=== PATIENT | male | born 1990 | race Caucasian/White ===

== ENCOUNTER 2017-04-03 20:30 | Emergency (ER) | payer MEDICAID ==
[~2017-04-03] VITALS: Ht 172.7 cm; Wt 114.0 kg
[~2017-04-03 20:30] MED LIST: BENADRYL
[2017-04-03 22:52] LABS: BASOPHILS % 0.2 % (0.0-2.0); EOSINOPHILS % 0.2 % (0.0-5.0); HEMATOCRIT. 42.6 % (42.0-52.0); HEMOGLOBIN. 14.2 g/dL (14.0-18.0); LYMPHOCYTES % 18.2 % (20.0-50.0); MEAN CORPUSCULAR HEMOGLOBIN 28.6 pg (28.0-32.0); MEAN CORPUSCULAR VOLUME 86.1 fL (80.0-94.0); MEAN PLATELET VOLUME 7.4 fl (7.4-10.4); MONOCYTES % 6.9 % (2.0-8.0); NEUTROPHILS % 74.5 % (40.0-76.0); PLATELET 325 x1000/uL (130-400); RED BLOOD CELL COUNT 4.95 mill/uL (4.7-6.1); RED CELL DISTRIBUTION WIDTH 14.3 % (11.6-14.6)
[2017-04-03 23:05] LABS: CHLORIDE 105 mEq/L (98-107); ETHANOL BLOOD < 10 mg/dL
[2017-04-03] MEDS ORDERED: SODIUM CHLORIDE 0.9% 1,000 ML IV ONE (23:30)
[2017-04-04 02:31] LABS: CLARITY URINE CLEAR (CLEAR); COLOR URINE DARK YELLOW (YELLOW); KETONES URINE 1+ (NEGATIVE); LEUKOCYTE ESTERASE URINE TRACE (NEGATIVE); NITRITE URINE NEGATIVE (NEGATIVE); OCCULT BLOOD URINE 2+ (NEGATIVE); PROTEIN URINE 3+ (NEGATIVE)
[2017-04-04 02:53] LABS: *AMPHETAMINES SCREEN URINE PRESUMTIVE POSITIVE (NEGATIVE); *BARBITURATES SCREEN URINE NEGATIVE (NEGATIVE); *BENZODIAZEPINES SCREEN URINE NEGATIVE (NEGATIVE); *COCAINE SCREEN URINE NEGATIVE (NEGATIVE); CANNABINOID URINE SCREEN PRESUMTIVE POSITIVE (NEGATIVE); METHADONE URINE SCREEN NEGATIVE (NEGATIVE); OPIATES URINE SCREEN NEGATIVE (NEGATIVE); PHENCYCLIDINE URINE SCREEN NEGATIVE (NEGATIVE)
[2017-04-04] MEDS ORDERED: LIDOCAINE HCL 1% 20ML VIAL (Pyxis) INJ INFIL ONE (07:30)
[2017-04-04] MEDS ORDERED: CEFTRIAXONE SODIUM 250 MG/VIAL IM ONE ×2 (07:30→09:45)
[2017-04-04] MEDS ORDERED: PIPERACILLIN/TAZ 3.375G PREMIX 50 ML IV ONE (08:00)
[2017-04-04] MEDS ORDERED: AZITHROMYCIN 500 MG TABLET PO ONE (09:45)
[2017-04-04] MEDS ORDERED: IOHEXOL-300 100 ML BOTTLE ONE (09:51)
[2017-04-05] MEDS ORDERED: ACETAMINOPHEN 325MG TABLET PO ONE (13:15)
[2017-04-05 20:30] VITALS: BP 127/69
== END 2017-04-05 21:31 ==
LOC: ER 20:31 → EDUNIT# 20:31 → ER 04-05 21:31
DX: T40.5X2A Poisoning by cocaine, intentional self-harm, initial encounter (principal); F14.129 Cocaine abuse with intoxication, unspecified; T43.622A Poisoning by amphetamines, intentional self-harm, initial encounter; F15.129 Other stimulant abuse with intoxication, unspecified; T40.7X2A Poisoning by cannabis (derivatives), intentional self-harm, initial encounter; F12.129 Cannabis abuse with intoxication, unspecified; S31.614A Laceration without foreign body of abdominal wall, left lower quadrant with penetration into peritoneal cavity, initial encounter; N34.2 Other urethritis; K76.0 Fatty (change of) liver, not elsewhere classified; Z59.0 Homelessness; X78.1XXA Intentional self-harm by knife, initial encounter; W26.0XXA Contact with knife, initial encounter; R45.850 Homicidal ideations; Y93.89 Activity, other specified; Y92.89 Other specified places as the place of occurrence of the external cause
CPT/HCPCS: 36415; 74177; 80053; 80305; 80307; 80329; 81001; 85025; 87086; 96361; 96365; 96366; 96372; 99285; G0482; J0696; J2543; J7030; Q9967; Z7610

== ENCOUNTER 2021-12-11 07:13 | Inpatient (IN) | payer MEDICAID ==
[~2021-12-11] VITALS: Ht 177.8 cm; Wt 173.3 kg
[2021-12-11] MEDS ORDERED: ALBUTEROL (0.083%) 2.5MG/3ML NEB HHN STA (08:14)
[2021-12-11 08:30] LABS: BASOPHILS % 0.2 % (0.0-2.0); EOSINOPHILS % 1.7 % (0.0-5.0); HEMATOCRIT. 36.3 % (42.0-52.0); HEMOGLOBIN. 12.3 g/dL (14.0-18.0); LYMPHOCYTES % 8.4 % (20.0-50.0); MEAN CORPUSCULAR HEMOGLOBIN 28.5 pg (28.0-32.0); MEAN CORPUSCULAR VOLUME 83.9 fL (80.0-94.0); MEAN PLATELET VOLUME 7.7 fl (7.4-10.4); MONOCYTES % 6.2 % (2.0-8.0); NEUTROPHILS % 83.5 % (40.0-76.0); PLATELET 202 x1000/uL (130-400); RED BLOOD CELL COUNT 4.33 mill/uL (4.7-6.1)
[2021-12-11 08:41] LABS: CHLORIDE 102 mEq/L (98-107)
[2021-12-11] MEDS ORDERED: ACETAMINOPHEN 325MG TABLET PO ONE (09:00)
[2021-12-11] MEDS ORDERED: FUROSEMIDE 40MG/4ML VIAL IV ONE (12:45)
[2021-12-11] MEDS ORDERED: ASPIRIN 81MG TABLET PO ONE (12:45)
[2021-12-11] MEDS ORDERED: FUROSEMIDE 40MG/4ML VIAL IVP ONE (14:30)
[2021-12-11] MEDS ORDERED: DIPHENHYDRAMINE 50MG/ML VIAL IV PRN (15:00)
[2021-12-11] MEDS ORDERED: ONDANSETRON HCL 4MG/2ML INJ IV PRN (15:00)
[2021-12-11] MEDS: HYDRALAZINE 20MG/ML VIAL IV PRN ×2 (15:19→22:07)
[2021-12-11] MEDS: CLONIDINE 0.1MG TABLET PO PRN (15:19)
[2021-12-11] MEDS ORDERED: DEXTROSE 50% WATER 50ML SYRINGE IV PRN (15:45)
[2021-12-11] MEDS: IPRATROPIUM/ALBUTEROL 0.5-3(2.5)MG/3ML NEB HHN PRN (15:46)
[2021-12-11 15:56] LABS: BG BASE EXCESS 5.9 mmol/L (-2.0-2.0); BG CARBOXYHEMOGLOBIN 0.8 % (0.5-1.5); BG DEOXYHEMOGLOBIN 3.4 % (0.0-5.0); BG FRACTION INSPIRED OXYGEN 28; BG HCO3 ACT 28.4 mmol/L (22.0-26.0); BG METHEMOGLOBIN 0.2 % (0.0-1.5); BG OXYGEN SATURATION 96.6 % (92.0-98.5); BG OXYHEMOGLOBIN 95.6 % (94.0-97.0); BG PCO2 34.5 mmHg (35.0-45.0); BG PH 7.534 (7.350-7.450); BG PO2 80.5 mmHg (75.0-100.0); BG SAMPLE SITE RIGHT RADIAL; BG TOTAL HEMOGLOBIN 13.5 g/dL (12.0-18.0); BG VENT MODE NASAL CANNULA
[2021-12-11] MEDS ORDERED: POTASSIUM CHLORIDE 20MEQ/PACKET PO NR (16:00)
[2021-12-11] MEDS: ENOXAPARIN 30MG/0.3ML SYR SUBCUT SCH (16:11)
[2021-12-11] MEDS ORDERED: FUROSEMIDE 40MG/4ML VIAL IV SCH (17:00)
[2021-12-11] MEDS: BLOOD SUGAR DIAGNOSTIC STRIP TEST SCH ×2 (17:32→21:37)
[2021-12-11] MEDS: INSULIN LISPRO 100 UNITS/ML SUBCUT SCH ×2 (18:20→21:00)
[2021-12-11 20:00] VITALS: BP 181/111
[2021-12-11] MEDS ORDERED: HYDROCODONE/ACETAMINOPHEN 5/325MG TABLET PO PRN (21:45)
[2021-12-11] MEDS ORDERED: NALOXONE HCL 0.4MG/ML VIAL IV PRN (22:00)
[2021-12-11] MEDS: ZOLPIDEM TARTRATE 5MG TABLET PO PRN (22:11)
[2021-12-11 22:26] VITALS: BP 181/111
[2021-12-12] VITALS (7 sets, daily range): BP systolic 118–158; BP diastolic 60–101
[2021-12-12] MEDS ORDERED: INFLUENZA VACCINE 05/PF 0.5 ML SYRINGE IM ONE (00:45)
[2021-12-12] MEDS: IPRATROPIUM/ALBUTEROL 0.5-3(2.5)MG/3ML NEB HHN PRN (04:37)
[2021-12-12] MEDS: CLONIDINE 0.1MG TABLET PO PRN (04:50)
[2021-12-12] MEDS: ENOXAPARIN 30MG/0.3ML SYR SUBCUT SCH (06:11)
[2021-12-12] MEDS: BLOOD SUGAR DIAGNOSTIC STRIP TEST SCH ×4 (06:16→21:00)
[2021-12-12] MEDS: INSULIN LISPRO 100 UNITS/ML SUBCUT SCH ×4 (06:16→21:00)
[2021-12-12 07:35] LABS: BASOPHILS % 0.3 % (0.0-2.0); EOSINOPHILS % 1.7 % (0.0-5.0); HEMATOCRIT. 37.4 % (42.0-52.0); HEMOGLOBIN. 12.7 g/dL (14.0-18.0); LYMPHOCYTES % 14.6 % (20.0-50.0); MEAN CORPUSCULAR HEMOGLOBIN 28.3 pg (28.0-32.0); MEAN CORPUSCULAR VOLUME 83.6 fL (80.0-94.0); MEAN PLATELET VOLUME 7.8 fl (7.4-10.4); MONOCYTES % 11.2 % (2.0-8.0); NEUTROPHILS % 72.2 % (40.0-76.0); PLATELET 223 x1000/uL (130-400); RED BLOOD CELL COUNT 4.47 mill/uL (4.7-6.1); RED CELL DISTRIBUTION WIDTH 15.3 % (11.6-14.6)
[2021-12-12 07:46] LABS: CHLORIDE 98 mEq/L (98-107)
[2021-12-12 08:09] LABS: HDL CHOLESTEROL 50 mg/dL (40-59); LDL CHOLESTEROL 86 mg/dL (5-100)
[2021-12-12] MEDS: POTASSIUM CHLORIDE 20MEQ TABLET SR PO SCH ×2 (08:30→16:30)
[2021-12-12] MEDS: ASPIRIN 81MG EC TABLET PO SCH (08:30)
[2021-12-12] MEDS: AMLODIPINE 5MG TABLET PO SCH ×2 (08:31→21:07)
[2021-12-12] MEDS: FUROSEMIDE 40MG/4ML VIAL IV SCH ×2 (08:31→16:31)
[2021-12-12] MEDS: ACETAMINOPHEN 325MG TABLET PO PRN (11:53)
[2021-12-12 14:51] LABS: *AMPHETAMINES SCREEN URINE NEGATIVE (NEGATIVE); *BARBITURATES SCREEN URINE NEGATIVE (NEGATIVE); *BENZODIAZEPINES SCREEN URINE NEGATIVE (NEGATIVE); *COCAINE SCREEN URINE NEGATIVE (NEGATIVE); CANNABINOID URINE SCREEN NEGATIVE (NEGATIVE); METHADONE URINE SCREEN NEGATIVE (NEGATIVE); OPIATES URINE SCREEN NEGATIVE (NEGATIVE); PHENCYCLIDINE URINE SCREEN NEGATIVE (NEGATIVE)
[2021-12-12] MEDS: ENOXAPARIN 40MG/0.4ML SYR SUBCUT SCH (17:21)
[2021-12-12] MEDS: ZOLPIDEM TARTRATE 5MG TABLET PO PRN (21:07)
[2021-12-13 00:11] VITALS: BP 132/76
[2021-12-13] MEDS: FUROSEMIDE 40MG/4ML VIAL IV SCH ×3 (00:46→17:11)
[2021-12-13 04:15] VITALS: BP 128/86
[2021-12-13] MEDS: ENOXAPARIN 40MG/0.4ML SYR SUBCUT SCH ×2 (05:36→17:12)
[2021-12-13] MEDS: BLOOD SUGAR DIAGNOSTIC STRIP TEST SCH ×4 (05:36→21:00)
[2021-12-13] MEDS: INSULIN LISPRO 100 UNITS/ML SUBCUT SCH ×4 (05:37→21:00)
[2021-12-13 06:09] LABS: BASOPHILS % 0.2 % (0.0-2.0); EOSINOPHILS % 2.7 % (0.0-5.0); HEMATOCRIT. 39.4 % (42.0-52.0); HEMOGLOBIN. 13.5 g/dL (14.0-18.0); LYMPHOCYTES % 19.4 % (20.0-50.0); MEAN CORPUSCULAR HEMOGLOBIN 28.8 pg (28.0-32.0); MEAN CORPUSCULAR VOLUME 84.1 fL (80.0-94.0); MEAN PLATELET VOLUME 7.7 fl (7.4-10.4); MONOCYTES % 10.3 % (2.0-8.0); NEUTROPHILS % 67.4 % (40.0-76.0); PLATELET 273 x1000/uL (130-400); RED BLOOD CELL COUNT 4.69 mill/uL (4.7-6.1); RED CELL DISTRIBUTION WIDTH 15.1 % (11.6-14.6)
[2021-12-13 06:18] LABS: CHLORIDE 97 mEq/L (98-107)
[2021-12-13] MEDS: ACETAMINOPHEN 325MG TABLET PO PRN (06:58)
[2021-12-13 08:00] VITALS: BP 140/86
[2021-12-13] MEDS: AMLODIPINE 5MG TABLET PO SCH ×2 (09:37→20:59)
[2021-12-13] MEDS: POTASSIUM CHLORIDE 20MEQ TABLET SR PO SCH ×2 (09:37→17:12)
[2021-12-13 09:39] LABS: BG BASE EXCESS 6.7 mmol/L (-2.0-2.0); BG CARBOXYHEMOGLOBIN 1.1 % (0.5-1.5); BG DEOXYHEMOGLOBIN 7.3 % (0.0-5.0); BG FRACTION INSPIRED OXYGEN 21; BG HCO3 ACT 31.2 mmol/L (22.0-26.0); BG METHEMOGLOBIN 0.1 % (0.0-1.5); BG OXYGEN SATURATION 92.6 % (92.0-98.5); BG OXYHEMOGLOBIN 91.5 % (94.0-97.0); BG PCO2 43.9 mmHg (35.0-45.0); BG PO2 61.9 mmHg (75.0-100.0); BG SAMPLE SITE LEFT RADIAL; BG TOTAL HEMOGLOBIN 14.9 g/dL (12.0-18.0); BG VENT MODE ROOM AIR
[2021-12-13] MEDS: ASPIRIN 81MG EC TABLET PO SCH (09:39)
[2021-12-13 12:00] VITALS: BP 123/61
[2021-12-13] MEDS ORDERED: POTASSIUM CHLORIDE 20MEQ/PACKET PO NR (12:30)
[2021-12-13 16:00] VITALS: BP 134/53
[2021-12-13 20:00] VITALS: BP 130/50
[2021-12-13] MEDS: ZOLPIDEM TARTRATE 5MG TABLET PO PRN (20:59)
[2021-12-14] VITALS: BP 120/50
[2021-12-14] MEDS: FUROSEMIDE 40MG/4ML VIAL IV SCH (02:48)
[2021-12-14 04:00] VITALS: BP 140/55
[2021-12-14] MEDS: INSULIN LISPRO 100 UNITS/ML SUBCUT SCH (05:42)
[2021-12-14] MEDS: BLOOD SUGAR DIAGNOSTIC STRIP TEST SCH ×2 (05:42→11:35)
[2021-12-14] MEDS: ENOXAPARIN 40MG/0.4ML SYR SUBCUT SCH ×2 (05:52→17:32)
[2021-12-14] MEDS ORDERED: METOLAZONE 2.5MG TABLET PO NR (06:30)
[2021-12-14 07:11] LABS: BASOPHILS % 0.2 % (0.0-2.0); EOSINOPHILS % 3.6 % (0.0-5.0); HEMATOCRIT. 40.2 % (42.0-52.0); HEMOGLOBIN. 13.7 g/dL (14.0-18.0); LYMPHOCYTES % 29.1 % (20.0-50.0); MEAN CORPUSCULAR HEMOGLOBIN 28.6 pg (28.0-32.0); MEAN CORPUSCULAR VOLUME 83.7 fL (80.0-94.0); MEAN PLATELET VOLUME 7.7 fl (7.4-10.4); MONOCYTES % 8.8 % (2.0-8.0); NEUTROPHILS % 58.3 % (40.0-76.0); PLATELET 300 x1000/uL (130-400); RED BLOOD CELL COUNT 4.81 mill/uL (4.7-6.1); RED CELL DISTRIBUTION WIDTH 15.3 % (11.6-14.6)
[2021-12-14 08:00] VITALS: BP 136/93
[2021-12-14] MEDS: FUROSEMIDE 100MG/10ML VIAL IV SCH ×2 (08:59→17:25)
[2021-12-14] MEDS: POTASSIUM CHLORIDE 20MEQ TABLET SR PO SCH ×2 (08:59→17:26)
[2021-12-14] MEDS: ASPIRIN 81MG EC TABLET PO SCH (08:59)
[2021-12-14] MEDS: AMLODIPINE 5MG TABLET PO SCH ×2 (09:00→21:41)
[2021-12-14] MEDS: GUAIFENESIN 600MG ER TABLET PO SCH ×2 (11:35→21:41)
[2021-12-14 12:00] VITALS: BP 126/84
[2021-12-14 16:00] VITALS: BP 123/81
[2021-12-14 20:00] VITALS: BP 155/107
[2021-12-14] MEDS: ZOLPIDEM TARTRATE 5MG TABLET PO PRN (21:41)
[2021-12-15] VITALS: BP 115/74
[2021-12-15] MEDS: FUROSEMIDE 100MG/10ML VIAL IV SCH ×2 (00:59→08:49)
[2021-12-15 04:00] VITALS: BP 127/70
[2021-12-15] MEDS: ENOXAPARIN 40MG/0.4ML SYR SUBCUT SCH (05:56)
[2021-12-15] MEDS: ACETAMINOPHEN 325MG TABLET PO PRN (05:57)
[2021-12-15 08:00] VITALS: BP 163/88
[2021-12-15] MEDS ORDERED: METOLAZONE 2.5MG TABLET PO NR (08:00)
[2021-12-15] MEDS: POLYETHYLENE GLYCOL 3350 (17GM) 1 DOSE PACK PO SCH ×2 (08:45→09:00)
[2021-12-15] MEDS: AMLODIPINE 5MG TABLET PO SCH (08:50)
[2021-12-15] MEDS: POTASSIUM CHLORIDE 20MEQ TABLET SR PO SCH (08:50)
[2021-12-15] MEDS: ASPIRIN 81MG EC TABLET PO SCH (08:50)
[2021-12-15] MEDS: GUAIFENESIN 600MG ER TABLET PO SCH (08:50)
[2021-12-15] MEDS ORDERED: GUAI600T44 MT (11:09)
[2021-12-15] MEDS ORDERED: MELA3TAB71 MT (11:09)
[2021-12-15] MEDS ORDERED: POLY17PO3 MT (11:09)
[2021-12-15] MEDS ORDERED: FURO80TA3 MT (11:09)
[2021-12-15] MEDS ORDERED: POTA-205 MT (11:09)
[2021-12-15] MEDS ORDERED: LORA-249 MT (11:11)
[2021-12-15 12:12] VITALS: BP 132/87
[2021-12-15 12:17] VITALS: BP 132/87
== END 2021-12-15 14:45 | disposition home or self-care (01) | DRG 194 ==
LOC: ER 07:13 → 8WST 13:33 → EDBEDREQTM 13:38 → EDBEDREQ 13:38 → ENRESERV 18:06 → 8WST 20:24
PROVIDERS: ADMIT Internal Medicine; ATTEND Internal Medicine
PROC: 5A09357 Assistance with Respiratory Ventilation, Less than 24 Consecutive Hours, Continuous Positive Airway Pressure (ICD-10-PCS; principal; 2021-12-12)
DX: I11.0 Hypertensive heart disease with heart failure (principal); J96.01 Acute respiratory failure with hypoxia; E44.1 Mild protein-calorie malnutrition; F41.9 Anxiety disorder, unspecified; J44.9 Chronic obstructive pulmonary disease, unspecified; E87.3 Alkalosis; I50.23 Acute on chronic systolic (congestive) heart failure; E87.6 Hypokalemia; E66.01 Morbid (severe) obesity due to excess calories; I34.0 Nonrheumatic mitral (valve) insufficiency; R73.9 Hyperglycemia, unspecified; Z20.822 Contact with and (suspected) exposure to COVID-19; E66.09 Other obesity due to excess calories; I16.0 Hypertensive urgency; F17.210 Nicotine dependence, cigarettes, uncomplicated; G47.33 Obstructive sleep apnea (adult) (pediatric); Z79.82 Long term (current) use of aspirin; Z68.43 Body mass index [BMI] 50.0-59.9, adult; Z71.6 Tobacco abuse counseling
CPT/HCPCS: 36415; 36600; 71045; 80048; 80053; 80061; 80305; 80307; 80329; 82375; 82805; 82962; 83036; 83735; 83880; 84443; 84484; 85025; 87426; 87804; 90686; 93005; 93306; 93970; 94640; 94660; 99291; C9803; J0360; J1650; J1815; J1940

== ENCOUNTER 2022-04-13 12:49 | Inpatient (IN) | payer MEDICAID ==
[~2022-04-13] VITALS: Ht 167.6 cm; Wt 207.7 kg
[~2022-04-13 12:49] MED LIST changes: -BENADRYL; +FURO80TA3 MT; +GUAI600T44 MT; +LORA-249 MT; +MELA3TAB71 MT; +POLY17PO3 MT; +POTA-205 MT
[2022-04-13 13:41] LABS: BG BASE EXCESS -5.4 mmol/L (-2.0-2.0); BG CARBOXYHEMOGLOBIN 1.1 % (0.5-1.5); BG DEOXYHEMOGLOBIN 0.3 % (0.0-5.0); BG FRACTION INSPIRED OXYGEN 100; BG HCO3 ACT 20.4 mmol/L (22.0-26.0); BG METHEMOGLOBIN 0.5 % (0.0-1.5); BG OXYGEN SATURATION 99.7 % (92.0-98.5); BG OXYHEMOGLOBIN 98.1 % (94.0-97.0); BG PCO2 40.8 mmHg (35.0-45.0); BG PH 7.316 (7.350-7.450); BG SAMPLE SITE RIGHT RADIAL; BG TOTAL HEMOGLOBIN 13.7 g/dL (12.0-18.0); BG TOTAL RESPIRATORY RATE 30 b/min; BG VENT MODE MASK - BIPAP
[2022-04-13 14:13] LABS: CHLORIDE 106 mEq/L (98-107)
[2022-04-13 14:21] LABS: BASOPHILS % 0.4 % (0.0-2.0); EOSINOPHILS % 0.6 % (0.0-5.0); HEMATOCRIT. 42.5 % (42.0-52.0); HEMOGLOBIN. 13.5 g/dL (14.0-18.0); LYMPHOCYTES % 13.6 % (20.0-50.0); MEAN CORPUSCULAR HEMOGLOBIN 26.9 pg (28.0-32.0); MEAN CORPUSCULAR VOLUME 84.7 fL (80.0-94.0); MEAN PLATELET VOLUME 7.1 fl (7.4-10.4); MONOCYTES % 8.6 % (2.0-8.0); NEUTROPHILS % 76.8 % (40.0-76.0); PLATELET 419 x1000/uL (130-400); RED BLOOD CELL COUNT 5.02 mill/uL (4.7-6.1); RED CELL DISTRIBUTION WIDTH 15.4 % (11.6-14.6)
[2022-04-13 14:24] LABS: ETHANOL BLOOD < 10 mg/dL
[2022-04-13] MEDS ORDERED: ASPIRIN 325MG EC TABLET PO SCH (15:00)
[2022-04-13] MEDS ORDERED: FUROSEMIDE 40MG/4ML VIAL IVP SCH (15:00)
[2022-04-13] MEDS ORDERED: ENOXAPARIN 100MG/ML SYR SUBCUT SCH (15:00)
[2022-04-13] MEDS ORDERED: NITROGLYCERIN OINT 1GM/INCH UDPKT TD SCH (15:00)
[2022-04-13] MEDS ORDERED: HYDRALAZINE 20MG/ML VIAL IV PRN (20:15)
[2022-04-13] MEDS ORDERED: HYDROCODONE/ACETAMINOPHEN 10/325MG TABLET PO PRN (20:45)
[2022-04-14] VITALS (12 sets, daily range): BP systolic 125–168; BP diastolic 50–123
[2022-04-14] MEDS ORDERED: IPRATROPIUM/ALBUTEROL 0.5-3(2.5)MG/3ML NEB HHN PRN (01:00)
[2022-04-14] MEDS ORDERED: NALOXONE HCL 0.4MG/ML VIAL IV PRN (01:30)
[2022-04-14] MEDS ORDERED: ALBUTEROL (0.083%) 2.5MG/3ML NEB HHN PRN (01:30)
[2022-04-14] MEDS ORDERED: IPRATROPIUM BROMIDE (0.02%) 0.5MG/2.5ML NEB HHN PRN (01:30)
[2022-04-14] MEDS ORDERED: IPRATROPIUM/ALBUTEROL 0.5-3(2.5)MG/3ML NEB HHN SCH (04:00)
[2022-04-14] MEDS: HYDROCODONE/ACETAMINOPHEN 10/325MG TABLET PO PRN ×4 (04:28→21:43)
[2022-04-14] MEDS: IPRATROPIUM BROMIDE (0.02%) 0.5MG/2.5ML NEB HHN SCH ×4 (04:32→21:19)
[2022-04-14] MEDS: ALBUTEROL (0.083%) 2.5MG/3ML NEB HHN SCH ×4 (04:32→21:19)
[2022-04-14] MEDS ORDERED: HYDRALAZINE HCL 50MG TABLET PO SCH (06:00)
[2022-04-14] MEDS: FUROSEMIDE 40MG/4ML VIAL IVP SCH ×2 (06:22→16:49)
[2022-04-14 06:54] LABS: HEMOGLOBIN. 13.4 g/dL (14.0-18.0); MEAN CORPUSCULAR HEMOGLOBIN 27.5 pg (28.0-32.0); MEAN CORPUSCULAR VOLUME 84.1 fL (80.0-94.0); MEAN PLATELET VOLUME 7.2 fl (7.4-10.4); PLATELET 371 x1000/uL (130-400); RED BLOOD CELL COUNT 4.88 mill/uL (4.7-6.1); RED CELL DISTRIBUTION WIDTH 15.3 % (11.6-14.6)
[2022-04-14] MEDS: LISINOPRIL 20MG TABLET PO SCH ×2 (08:15→20:25)
[2022-04-14] MEDS ORDERED: ENOXAPARIN 100MG/ML SYR SUBCUT SCH (09:00)
[2022-04-14] MEDS ORDERED: ASPIRIN 325MG TABLET PO SCH (09:00)
[2022-04-14] MEDS ORDERED: CARVEDILOL 3.125 MG TABLET PO SCH (09:00)
[2022-04-14] MEDS ORDERED: CLONIDINE 0.1MG TABLET PO PRN (10:30)
[2022-04-14] MEDS: METOLAZONE 2.5MG TABLET PO SCH ×2 (10:45→16:49)
[2022-04-14 13:56] LABS: *AMPHETAMINES SCREEN URINE PRESUMTIVE POSITIVE (NEGATIVE); *BARBITURATES SCREEN URINE NEGATIVE (NEGATIVE); *BENZODIAZEPINES SCREEN URINE NEGATIVE (NEGATIVE); *COCAINE SCREEN URINE NEGATIVE (NEGATIVE); CANNABINOID URINE SCREEN NEGATIVE (NEGATIVE); METHADONE URINE SCREEN NEGATIVE (NEGATIVE); OPIATES URINE SCREEN PRESUMTIVE POSITIVE (NEGATIVE); PHENCYCLIDINE URINE SCREEN NEGATIVE (NEGATIVE)
[2022-04-14] MEDS: HYDRALAZINE HCL 100MG TABLET PO SCH ×2 (14:33→21:36)
[2022-04-14 14:45] LABS: PLATELET ESTIMATE NORMAL
[2022-04-14 16:58] LABS: HEPATITIS B SURFACE ANTIGEN NEGATIVE
[2022-04-14] MEDS: LORAZEPAM 1MG TABLET PO PRN (20:25)
[2022-04-14] MEDS: CARVEDILOL 6.25 MG TABLET PO SCH (20:25)
[2022-04-14] MEDS: NITROGLYCERIN OINT 1GM/INCH UDPKT TD SCH (21:35)
[2022-04-15] VITALS (8 sets, daily range): BP systolic 117–163; BP diastolic 56–122
[2022-04-15] MEDS: ALBUTEROL (0.083%) 2.5MG/3ML NEB HHN SCH ×2 (01:14→08:55)
[2022-04-15] MEDS: IPRATROPIUM BROMIDE (0.02%) 0.5MG/2.5ML NEB HHN SCH ×2 (01:15→08:56)
[2022-04-15] MEDS: ZOLPIDEM TARTRATE 5MG TABLET PO PRN (01:34)
[2022-04-15] MEDS: HYDRALAZINE HCL 100MG TABLET PO SCH ×3 (05:07→21:11)
[2022-04-15] MEDS: NITROGLYCERIN OINT 1GM/INCH UDPKT TD SCH ×3 (05:07→21:11)
[2022-04-15] MEDS: ASPIRIN 81MG TABLET PO SCH (08:25)
[2022-04-15] MEDS: ENOXAPARIN 40MG/0.4ML SYR SUBCUT SCH ×2 (08:25→21:12)
[2022-04-15] MEDS: FUROSEMIDE 40MG/4ML VIAL IVP SCH (08:26)
[2022-04-15] MEDS: CARVEDILOL 6.25 MG TABLET PO SCH ×2 (08:26→21:12)
[2022-04-15] MEDS: METOLAZONE 2.5MG TABLET PO SCH ×2 (08:26→16:37)
[2022-04-15] MEDS: LISINOPRIL 20MG TABLET PO SCH ×2 (08:26→21:12)
[2022-04-15] MEDS: HYDROCODONE/ACETAMINOPHEN 10/325MG TABLET PO PRN ×3 (08:34→21:22)
[2022-04-15 10:52] LABS: BG BASE EXCESS 0.2 mmol/L (-2.0-2.0); BG CARBOXYHEMOGLOBIN 0.9 % (0.5-1.5); BG DEOXYHEMOGLOBIN 8.9 % (0.0-5.0); BG FRACTION INSPIRED OXYGEN 21; BG HCO3 ACT 25.4 mmol/L (22.0-26.0); BG METHEMOGLOBIN 0.3 % (0.0-1.5); BG OXYHEMOGLOBIN 89.9 % (94.0-97.0); BG PCO2 43.4 mmHg (35.0-45.0); BG PH 7.385 (7.350-7.450); BG PO2 62.3 mmHg (75.0-100.0); BG SAMPLE SITE RIGHT RADIAL; BG TOTAL HEMOGLOBIN 12.8 g/dL (12.0-18.0); BG VENT MODE ROOM AIR
[2022-04-15] MEDS: CLONIDINE 0.1MG TABLET PO SCH ×2 (12:21→17:49)
[2022-04-15 14:05] LABS: CLARITY URINE CLOUDY (CLEAR); COLOR URINE YELLOW (YELLOW); KETONES URINE NEGATIVE (NEGATIVE); LEUKOCYTE ESTERASE URINE NEGATIVE (NEGATIVE); NITRITE URINE NEGATIVE (NEGATIVE); OCCULT BLOOD URINE 2+ (NEGATIVE); PROTEIN URINE 2+ (NEGATIVE); SPECIFIC GRAVITY URINE 1.011 (1.005-1.030); UROBILINOGEN URINE 0.2 E.U./dL (0.2-1.0)
[2022-04-15] MEDS: FUROSEMIDE 100MG/10ML VIAL IVP SCH (16:37)
[2022-04-15 18:48] LABS: BASOPHILS % 0.3 % (0.0-2.0); EOSINOPHILS % 1.1 % (0.0-5.0); HEMATOCRIT. 41.2 % (42.0-52.0); HEMOGLOBIN. 13.2 g/dL (14.0-18.0); LYMPHOCYTES % 10.9 % (20.0-50.0); MEAN CORPUSCULAR HEMOGLOBIN 27.3 pg (28.0-32.0); MEAN CORPUSCULAR VOLUME 84.9 fL (80.0-94.0); MONOCYTES % 8.9 % (2.0-8.0); NEUTROPHILS % 78.8 % (40.0-76.0); RED BLOOD CELL COUNT 4.85 mill/uL (4.7-6.1); RED CELL DISTRIBUTION WIDTH 15.3 % (11.6-14.6)
[2022-04-15 19:51] LABS: MEAN PLATELET VOLUME 7.4 fl (7.4-10.4); PLATELET 363 x1000/uL (130-400)
[2022-04-15] MEDS: ATORVASTATIN CALCIUM 20MG TABLET PO SCH (21:12)
[2022-04-15] MEDS: LORAZEPAM 1MG TABLET PO PRN (21:22)
[2022-04-16] VITALS (7 sets, daily range): BP systolic 101–135; BP diastolic 35–72
[2022-04-16] MEDS: HYDROCODONE/ACETAMINOPHEN 10/325MG TABLET PO PRN ×4 (01:21→20:27)
[2022-04-16] MEDS: ZOLPIDEM TARTRATE 5MG TABLET PO PRN (01:25)
[2022-04-16] MEDS: IPRATROPIUM BROMIDE (0.02%) 0.5MG/2.5ML NEB HHN SCH ×3 (01:49→16:29)
[2022-04-16] MEDS: ALBUTEROL (0.083%) 2.5MG/3ML NEB HHN SCH ×3 (01:49→16:29)
[2022-04-16] MEDS: HYDRALAZINE HCL 100MG TABLET PO SCH ×3 (05:32→22:44)
[2022-04-16] MEDS: NITROGLYCERIN OINT 1GM/INCH UDPKT TD SCH ×3 (05:32→22:43)
[2022-04-16] MEDS: CLONIDINE 0.1MG TABLET PO SCH ×4 (05:32→17:09)
[2022-04-16] MEDS: FUROSEMIDE 100MG/10ML VIAL IVP SCH ×2 (08:41→16:31)
[2022-04-16] MEDS: ENOXAPARIN 40MG/0.4ML SYR SUBCUT SCH ×2 (08:41→22:41)
[2022-04-16] MEDS: METOLAZONE 2.5MG TABLET PO SCH ×2 (08:41→16:30)
[2022-04-16] MEDS: LISINOPRIL 20MG TABLET PO SCH ×2 (08:41→22:44)
[2022-04-16] MEDS: ASPIRIN 81MG TABLET PO SCH (08:42)
[2022-04-16] MEDS: CARVEDILOL 6.25 MG TABLET PO SCH ×2 (08:42→22:45)
[2022-04-16] MEDS: ATORVASTATIN CALCIUM 20MG TABLET PO SCH (22:45)
[2022-04-17] VITALS: BP 113/53
[2022-04-17] MEDS: ALBUTEROL (0.083%) 2.5MG/3ML NEB HHN SCH ×2 (00:27→07:57)
[2022-04-17] MEDS: IPRATROPIUM BROMIDE (0.02%) 0.5MG/2.5ML NEB HHN SCH ×2 (00:27→07:57)
[2022-04-17] MEDS: CLONIDINE 0.1MG TABLET PO SCH ×2 (00:52→06:00)
[2022-04-17] MEDS: HYDROCODONE/ACETAMINOPHEN 10/325MG TABLET PO PRN ×3 (03:36→23:12)
[2022-04-17 04:00] VITALS: BP 103/42
[2022-04-17] MEDS: HYDRALAZINE HCL 100MG TABLET PO SCH (06:00)
[2022-04-17] MEDS: FUROSEMIDE 100MG/10ML VIAL IVP SCH (06:19)
[2022-04-17] MEDS: NITROGLYCERIN OINT 1GM/INCH UDPKT TD SCH ×3 (06:20→23:09)
[2022-04-17 08:00] VITALS: BP 135/71
[2022-04-17] MEDS: ASPIRIN 81MG TABLET PO SCH (08:23)
[2022-04-17] MEDS: ENOXAPARIN 40MG/0.4ML SYR SUBCUT SCH ×2 (08:23→23:10)
[2022-04-17] MEDS: METOLAZONE 2.5MG TABLET PO SCH ×2 (08:23→16:42)
[2022-04-17] MEDS: CARVEDILOL 6.25 MG TABLET PO SCH ×2 (08:24→21:00)
[2022-04-17] MEDS: LISINOPRIL 10MG TABLET PO SCH (08:24)
[2022-04-17 10:38] LABS: BASOPHILS % 0.4 % (0.0-2.0); EOSINOPHILS % 1.1 % (0.0-5.0); HEMATOCRIT. 36.5 % (42.0-52.0); HEMOGLOBIN. 11.8 g/dL (14.0-18.0); LYMPHOCYTES % 15.7 % (20.0-50.0); MEAN CORPUSCULAR HEMOGLOBIN 26.9 pg (28.0-32.0); MEAN CORPUSCULAR VOLUME 82.8 fL (80.0-94.0); MONOCYTES % 11.2 % (2.0-8.0); NEUTROPHILS % 71.6 % (40.0-76.0); PLATELET 351 x1000/uL (130-400); RED CELL DISTRIBUTION WIDTH 15.4 % (11.6-14.6)
[2022-04-17 12:31] VITALS: BP 121/63
[2022-04-17] MEDS: HYDRALAZINE HCL 25MG TABLET PO SCH ×2 (13:39→22:00)
[2022-04-17 16:00] VITALS: BP 127/66
[2022-04-17 20:00] VITALS: BP 108/67
[2022-04-17] MEDS: FUROSEMIDE 40MG TABLET PO SCH (23:09)
[2022-04-17] MEDS: ATORVASTATIN CALCIUM 20MG TABLET PO SCH (23:14)
[2022-04-18] VITALS: BP 119/54
[2022-04-18] MEDS: ALBUTEROL (0.083%) 2.5MG/3ML NEB HHN SCH ×3 (01:06→16:33)
[2022-04-18] MEDS: IPRATROPIUM BROMIDE (0.02%) 0.5MG/2.5ML NEB HHN SCH ×3 (01:06→16:33)
[2022-04-18 04:00] VITALS: BP 140/66
[2022-04-18] MEDS: NITROGLYCERIN OINT 1GM/INCH UDPKT TD SCH ×3 (06:13→21:16)
[2022-04-18] MEDS: HYDRALAZINE HCL 25MG TABLET PO SCH ×3 (06:13→21:16)
[2022-04-18] MEDS: HYDROCODONE/ACETAMINOPHEN 10/325MG TABLET PO PRN ×3 (06:14→18:14)
[2022-04-18 08:00] VITALS: BP 120/68
[2022-04-18] MEDS: FUROSEMIDE 40MG TABLET PO SCH ×2 (09:12→20:37)
[2022-04-18] MEDS: CARVEDILOL 6.25 MG TABLET PO SCH ×2 (09:16→20:37)
[2022-04-18] MEDS: ASPIRIN 81MG TABLET PO SCH (09:16)
[2022-04-18] MEDS: METOLAZONE 2.5MG TABLET PO SCH ×2 (09:17→17:07)
[2022-04-18] MEDS: ENOXAPARIN 40MG/0.4ML SYR SUBCUT SCH ×2 (09:17→20:38)
[2022-04-18] MEDS: LISINOPRIL 10MG TABLET PO SCH (09:17)
[2022-04-18 12:00] VITALS: BP 126/65
[2022-04-18 16:00] VITALS: BP 124/73
[2022-04-18 17:06] LABS: BASOPHILS % 0.4 % (0.0-2.0); EOSINOPHILS % 1.3 % (0.0-5.0); HEMATOCRIT. 35.8 % (42.0-52.0); HEMOGLOBIN. 11.6 g/dL (14.0-18.0); LYMPHOCYTES % 17.9 % (20.0-50.0); MEAN CORPUSCULAR HEMOGLOBIN 26.6 pg (28.0-32.0); MEAN CORPUSCULAR VOLUME 82.3 fL (80.0-94.0); MEAN PLATELET VOLUME 6.8 fl (7.4-10.4); MONOCYTES % 13.1 % (2.0-8.0); NEUTROPHILS % 67.3 % (40.0-76.0); PLATELET 347 x1000/uL (130-400); RED BLOOD CELL COUNT 4.35 mill/uL (4.7-6.1); RED CELL DISTRIBUTION WIDTH 15.4 % (11.6-14.6)
[2022-04-18 17:12] LABS: CHLORIDE 94 mEq/L (98-107)
[2022-04-18 20:00] VITALS: BP 122/64
[2022-04-18] MEDS: LORAZEPAM 1MG TABLET PO PRN (20:38)
[2022-04-18] MEDS: ATORVASTATIN CALCIUM 20MG TABLET PO SCH (20:40)
[2022-04-18] MEDS: HYDROCODONE/ACETAMINOPHEN 5/325MG TABLET PO PRN (22:02)
[2022-04-19] VITALS: BP 113/48
[2022-04-19] MEDS: IPRATROPIUM BROMIDE (0.02%) 0.5MG/2.5ML NEB HHN SCH ×4 (00:30→21:17)
[2022-04-19] MEDS: ALBUTEROL (0.083%) 2.5MG/3ML NEB HHN SCH ×4 (00:31→21:17)
[2022-04-19] MEDS: HYDROCODONE/ACETAMINOPHEN 5/325MG TABLET PO PRN ×5 (02:42→22:18)
[2022-04-19 04:00] VITALS: BP 136/77
[2022-04-19 04:17] LABS: HIV SCREEN 4G Non Reactive (Non Reactive)
[2022-04-19] MEDS: HYDRALAZINE HCL 25MG TABLET PO SCH ×3 (05:41→21:01)
[2022-04-19] MEDS: NITROGLYCERIN OINT 1GM/INCH UDPKT TD SCH ×3 (05:42→21:01)
[2022-04-19 06:15] LABS: BASOPHILS % 0.5 % (0.0-2.0); EOSINOPHILS % 2.5 % (0.0-5.0); HEMATOCRIT. 36.6 % (42.0-52.0); LYMPHOCYTES % 19.1 % (20.0-50.0); MEAN CORPUSCULAR HEMOGLOBIN 26.8 pg (28.0-32.0); MEAN CORPUSCULAR VOLUME 81.9 fL (80.0-94.0); MEAN PLATELET VOLUME 7.3 fl (7.4-10.4); MONOCYTES % 13.9 % (2.0-8.0); PLATELET 305 x1000/uL (130-400); RED BLOOD CELL COUNT 4.46 mill/uL (4.7-6.1); RED CELL DISTRIBUTION WIDTH 15.2 % (11.6-14.6)
[2022-04-19 08:00] VITALS: BP 110/55
[2022-04-19] MEDS: CARVEDILOL 6.25 MG TABLET PO SCH ×2 (09:00→20:54)
[2022-04-19] MEDS: LISINOPRIL 10MG TABLET PO SCH (09:00)
[2022-04-19] MEDS: ENOXAPARIN 40MG/0.4ML SYR SUBCUT SCH ×2 (09:40→20:55)
[2022-04-19] MEDS: ASPIRIN 81MG TABLET PO SCH (09:40)
[2022-04-19] MEDS: METOLAZONE 2.5MG TABLET PO SCH ×2 (09:40→18:02)
[2022-04-19] MEDS: FUROSEMIDE 40MG TABLET PO SCH ×2 (09:41→20:54)
[2022-04-19 12:00] VITALS: BP 123/69
[2022-04-19 16:00] VITALS: BP 123/70
[2022-04-19] MEDS ORDERED: NALOXONE HCL 0.4MG/ML VIAL IV PRN (18:45)
[2022-04-19 20:00] VITALS: BP 137/71
[2022-04-19] MEDS: ATORVASTATIN CALCIUM 20MG TABLET PO SCH (20:54)
[2022-04-19] MEDS: ZOLPIDEM TARTRATE 5MG TABLET PO PRN (21:02)
[2022-04-20] VITALS: BP 117/61
[2022-04-20] MEDS: IPRATROPIUM BROMIDE (0.02%) 0.5MG/2.5ML NEB HHN SCH ×3 (01:24→14:22)
[2022-04-20] MEDS: ALBUTEROL (0.083%) 2.5MG/3ML NEB HHN SCH ×3 (01:24→14:22)
[2022-04-20 04:00] VITALS: BP 114/59
[2022-04-20] MEDS: NITROGLYCERIN OINT 1GM/INCH UDPKT TD SCH ×3 (05:07→21:43)
[2022-04-20] MEDS: HYDRALAZINE HCL 25MG TABLET PO SCH ×3 (05:08→22:00)
[2022-04-20] MEDS: HYDROCODONE/ACETAMINOPHEN 5/325MG TABLET PO PRN ×4 (05:09→20:59)
[2022-04-20 08:00] VITALS: BP 114/69
[2022-04-20] MEDS: LISINOPRIL 10MG TABLET PO SCH (10:03)
[2022-04-20] MEDS: ASPIRIN 81MG TABLET PO SCH (10:03)
[2022-04-20] MEDS: ENOXAPARIN 40MG/0.4ML SYR SUBCUT SCH ×2 (10:03→21:39)
[2022-04-20] MEDS: CARVEDILOL 6.25 MG TABLET PO SCH ×2 (10:03→20:56)
[2022-04-20] MEDS: FUROSEMIDE 40MG TABLET PO SCH ×2 (10:03→20:57)
[2022-04-20] MEDS: DOCUSATE SODIUM 250MG CAPSULE PO PRN (10:03)
[2022-04-20] MEDS: METOLAZONE 2.5MG TABLET PO SCH ×2 (10:03→18:09)
[2022-04-20 12:00] VITALS: BP 130/41
[2022-04-20 16:00] VITALS: BP 115/67
[2022-04-20] MEDS ORDERED: ZOLPIDEM TARTRATE 5MG TABLET PO NR (20:37)
[2022-04-20] MEDS: ATORVASTATIN CALCIUM 20MG TABLET PO SCH (20:56)
[2022-04-21] MEDS: HYDRALAZINE HCL 25MG TABLET PO SCH ×3 (05:33→21:55)
[2022-04-21] MEDS: HYDROCODONE/ACETAMINOPHEN 5/325MG TABLET PO PRN ×4 (05:34→21:57)
[2022-04-21] MEDS: NITROGLYCERIN OINT 1GM/INCH UDPKT TD SCH ×3 (05:34→22:02)
[2022-04-21 08:00] VITALS: BP 126/73
[2022-04-21] MEDS: METOLAZONE 2.5MG TABLET PO SCH (09:29)
[2022-04-21] MEDS: LISINOPRIL 10MG TABLET PO SCH (09:29)
[2022-04-21] MEDS: FUROSEMIDE 40MG TABLET PO SCH ×2 (09:30→21:56)
[2022-04-21] MEDS: CARVEDILOL 6.25 MG TABLET PO SCH ×2 (09:30→21:56)
[2022-04-21] MEDS: ASPIRIN 81MG TABLET PO SCH (09:30)
[2022-04-21] MEDS: ENOXAPARIN 40MG/0.4ML SYR SUBCUT SCH ×2 (09:33→21:56)
[2022-04-21 12:00] VITALS: BP 136/73
[2022-04-21 16:00] VITALS: BP 139/80
[2022-04-21 20:00] VITALS: BP 141/83
[2022-04-21] MEDS ORDERED: ZOLPIDEM TARTRATE 5MG TABLET PO PRN (20:15)
[2022-04-21] MEDS: ATORVASTATIN CALCIUM 20MG TABLET PO SCH (22:01)
[2022-04-21] MEDS: GUAIFENESIN 600MG ER TABLET PO SCH (22:01)
[2022-04-22] VITALS: BP 98/65
[2022-04-22 04:00] VITALS: BP 101/67
[2022-04-22 08:00] VITALS: BP 154/81
[2022-04-22] MEDS: HYDROCODONE/ACETAMINOPHEN 5/325MG TABLET PO PRN (08:50)
[2022-04-22] MEDS: CARVEDILOL 6.25 MG TABLET PO SCH ×2 (08:51→21:00)
[2022-04-22] MEDS: METOLAZONE 2.5MG TABLET PO SCH ×2 (08:51→17:26)
[2022-04-22] MEDS: GUAIFENESIN 600MG ER TABLET PO SCH ×2 (08:51→22:04)
[2022-04-22] MEDS: DOCUSATE SODIUM 250MG CAPSULE PO PRN (08:51)
[2022-04-22] MEDS: LISINOPRIL 10MG TABLET PO SCH (08:51)
[2022-04-22] MEDS: FUROSEMIDE 40MG TABLET PO SCH ×2 (08:51→22:03)
[2022-04-22] MEDS: ASPIRIN 81MG TABLET PO SCH (08:52)
[2022-04-22] MEDS: ENOXAPARIN 40MG/0.4ML SYR SUBCUT SCH ×2 (08:52→22:05)
[2022-04-22 12:00] VITALS: BP 133/82
[2022-04-22] MEDS ORDERED: IPRATROPIUM/ALBUTEROL 0.5-3(2.5)MG/3ML NEB HHN PRN (12:45)
[2022-04-22] MEDS ORDERED: IPRATROPIUM BROMIDE (0.02%) 0.5MG/2.5ML NEB HHN PRN (13:00)
[2022-04-22] MEDS ORDERED: HYDRALAZINE 10 MG in SODIUM CHLORIDE 0.9% 49.5 ML IV PRN (13:00)
[2022-04-22] MEDS ORDERED: ALBUTEROL (0.083%) 2.5MG/3ML NEB HHN PRN (13:00)
[2022-04-22 16:00] VITALS: BP 157/85
[2022-04-22] MEDS: NITROGLYCERIN OINT 1GM/INCH UDPKT TD SCH ×2 (17:25→22:04)
[2022-04-22] MEDS: HYDRALAZINE HCL 25MG TABLET PO SCH ×2 (17:26→22:00)
[2022-04-22] MEDS ORDERED: IPRATROPIUM/ALBUTEROL 0.5-3(2.5)MG/3ML NEB HHN SCH (18:00)
[2022-04-22] MEDS: ALBUTEROL (0.083%) 2.5MG/3ML NEB HHN SCH (21:51)
[2022-04-22] MEDS: IPRATROPIUM BROMIDE (0.02%) 0.5MG/2.5ML NEB HHN SCH (21:51)
[2022-04-22] MEDS: QUETIAPINE FUMARATE 50MG TABLET PO SCH (22:04)
[2022-04-22] MEDS: ATORVASTATIN CALCIUM 20MG TABLET PO SCH (22:04)
[2022-04-23] MEDS: IPRATROPIUM BROMIDE (0.02%) 0.5MG/2.5ML NEB HHN SCH ×2 (03:09→10:26)
[2022-04-23] MEDS: ALBUTEROL (0.083%) 2.5MG/3ML NEB HHN SCH ×2 (03:09→10:27)
[2022-04-23] MEDS: HYDRALAZINE HCL 25MG TABLET PO SCH ×2 (06:00→14:00)
[2022-04-23] MEDS: NITROGLYCERIN OINT 1GM/INCH UDPKT TD SCH ×2 (06:59→14:14)
[2022-04-23 08:00] VITALS: BP 103/50
[2022-04-23] MEDS: METOLAZONE 2.5MG TABLET PO SCH (08:44)
[2022-04-23] MEDS: LISINOPRIL 10MG TABLET PO SCH (08:45)
[2022-04-23] MEDS: GUAIFENESIN 600MG ER TABLET PO SCH (08:48)
[2022-04-23] MEDS: QUETIAPINE FUMARATE 50MG TABLET PO SCH (08:48)
[2022-04-23] MEDS: FUROSEMIDE 40MG TABLET PO SCH (08:48)
[2022-04-23] MEDS: CARVEDILOL 6.25 MG TABLET PO SCH (08:48)
[2022-04-23] MEDS: DOCUSATE SODIUM 250MG CAPSULE PO PRN (08:48)
[2022-04-23] MEDS: ASPIRIN 81MG TABLET PO SCH (08:48)
[2022-04-23] MEDS: ENOXAPARIN 40MG/0.4ML SYR SUBCUT SCH (08:49)
[2022-04-23 12:00] VITALS: BP 111/50
[2022-04-23 13:02] VITALS: BP 111/50
== END 2022-04-23 15:05 | disposition home or self-care (01) | DRG 812 ==
LOC: ER 12:49 → EDBEDREQ 14:55 → MICUSO 16:16 → EDBEDREQ 16:20 → EDBEDREQTM 16:20 → 5EST 23:56 → 7WST 04-15 19:09 → 6EST 04-20 16:38
PROVIDERS: ADMIT Internal Medicine; ATTEND Internal Medicine
PROC: 5A09357 Assistance with Respiratory Ventilation, Less than 24 Consecutive Hours, Continuous Positive Airway Pressure (ICD-10-PCS; principal; 2022-04-13)
PROC: 5A09357 Assistance with Respiratory Ventilation, Less than 24 Consecutive Hours, Continuous Positive Airway Pressure (ICD-10-PCS; 2022-04-13)
DX: T43.621A Poisoning by amphetamines, accidental (unintentional), initial encounter (principal); J96.01 Acute respiratory failure with hypoxia; I21.4 Non-ST elevation (NSTEMI) myocardial infarction; I50.23 Acute on chronic systolic (congestive) heart failure; J68.0 Bronchitis and pneumonitis due to chemicals, gases, fumes and vapors; Z68.45 Body mass index [BMI] 70 or greater, adult; E87.20 Acidosis, unspecified; I42.0 Dilated cardiomyopathy; I13.0 Hypertensive heart and chronic kidney disease with heart failure and stage 1 through stage 4 chronic kidney disease, or unspecified chronic kidney disease; N17.9 Acute kidney failure, unspecified; F15.10 Other stimulant abuse, uncomplicated; F11.10 Opioid abuse, uncomplicated; E66.01 Morbid (severe) obesity due to excess calories; E11.22 Type 2 diabetes mellitus with diabetic chronic kidney disease; F41.9 Anxiety disorder, unspecified; E87.6 Hypokalemia; G47.419 Narcolepsy without cataplexy; G47.33 Obstructive sleep apnea (adult) (pediatric); F10.10 Alcohol abuse, uncomplicated; Z20.822 Contact with and (suspected) exposure to COVID-19; F20.9 Schizophrenia, unspecified; F17.210 Nicotine dependence, cigarettes, uncomplicated; N18.9 Chronic kidney disease, unspecified; Z79.4 Long term (current) use of insulin; Z91.14 Patient's other noncompliance with medication regimen; Z91.199 Patient's noncompliance with other medical treatment and regimen due to unspecified reason; Z79.899 Other long term (current) drug therapy
CPT/HCPCS: 36415; 36600; 71045; 80048; 80053; 80061; 80305; 80320; 81003; 82375; 82805; 83036; 83880; 84145; 84484; 85025; 85379; 86705; 86709; 86803; 86850; 86900; 87340; 87389; 87426; 93005; 93306; 93970; 94640; 94660; 97162; 97166; 97530; 97535; 99291; A6261; C1893; C9803; J0360; J1650; J1940; A4315; G0480